=== PATIENT | male | born 1975 | race African-American/Black ===

== ENCOUNTER 2018-09-22 07:15 | Day surgery (SDC) | payer OTHER ==
[~2018-09-22] VITALS: Ht 175.3 cm; Wt 66.1 kg
[2018-09-22] VITALS (15 sets, daily range): BP systolic 106–135; BP diastolic 67–89; PULSE 54–78; RESP 14–25; Ht 175.3 cm; Wt 66.1 kg
[2018-09-22] MEDS ORDERED: BUPIVACAINE 0.5%/EPI (SDV) 30 ML INJ ONE (07:46)
[2018-09-22] MEDS ORDERED: METOCLOPRAMIDE 10 MG INJ ONE (08:32)
[2018-09-22] MEDS ORDERED: SUCCINYLCHOLINE CHLORIDE 100 MG/5 ML SYG IV ONE (08:32)
[2018-09-22] MEDS ORDERED: MIDAZOLAM 1 MG/ML 2 ML INJ ONE (08:32)
[2018-09-22] MEDS ORDERED: FENTAnyl 50 MCG/ML VIAL ONE (08:32)
[2018-09-22] MEDS ORDERED: NEOSTIGMINE 3 MG/3 ML SYRINGE ONE (08:32)
[2018-09-22] MEDS ORDERED: ROCURONIUM 50 MG INJ ONE (08:32)
[2018-09-22] MEDS ORDERED: GLYCOPYRROLATE 0.4 MG INJ ONE (08:32)
[2018-09-22] MEDS ORDERED: ONDANSETRON 4 MG INJ ONE (08:32)
[2018-09-22] MEDS ORDERED: PROPOFOL 20 ML ONE (08:32)
[2018-09-22] MEDS ORDERED: CEFAZOLIN 1 GM INJ ONE (08:52)
[2018-09-22] MEDS ORDERED: NEOMYC/POLYMYX/BACIT 30 GM OINT ONE (09:12)
[2018-09-22] MEDS ORDERED: BUPIVACAINE 0.5%/EPI (SDV) 30 ML INJ INJ ONE (09:28)
[2018-09-22] MEDS ORDERED: ONDANSETRON 4 MG INJ IV PRN ×2 (09:30→10:00)
[2018-09-22] MEDS ORDERED: morphine (1 MG/ML) 10ML SYRINGE IV PRN (09:30)
[2018-09-22] MEDS ORDERED: METOCLOPRAMIDE 10 MG INJ IV PRN (09:30)
[2018-09-22] MEDS ORDERED: FENTAnyl 50 MCG/ML VIAL IV PRN (09:30)
[2018-09-22] MEDS ORDERED: LABETALOL HCL 20MG INJ IV PRN (09:30)
[2018-09-22] MEDS ORDERED: HYDROmorphONE 1 MG/5 ML IV SYRINGE IV PRN (09:30)
[2018-09-22] MEDS ORDERED: KETOROLAC 15 MG INJ IV PRN (09:30)
[2018-09-22] MEDS ORDERED: NEOMYC/POLYMYX/BACIT 30 GM OINT TOP ONE (09:32)
--- NOTE | 2018-09-22 09:45 | OPR ---
Date/Time of Note Date/Time of Note DATE: 09/22/18 TIME: 09:39 Operative Report Procedure Date: Sep 22, 2018 Preoperative Diagnosis 1. Scalp mass 2. Left neck mass Postoperative Diagnosis 1. Scalp mass 2. Left neck mass Operation/Procedure Performed 1. Excision of scalp mass 2. Excision of left neck mass Surgeon see signature line [employer] Line Examiner None Anesthesia Type: general Anesthesiologist: Radha Chase Estimated Blood Loss: minimal Transfusion none Specimen 1. Scalp mass 2. Left neck mass Grafts/Implants none Complications none Pt Condition Post Procedure: stable Disposition: PACU Indications Patient is a 43-year-old -[place] male who presented to the office complaining of soft tissue masses of the right posterior scalp and left neck area. He reports these have been present for several years, however, have recently been growing and causing increasing discomfort. The patient was scheduled for elective excision for symptom relief and definitive pathological diagnosis. All risks and benefits of the procedure including, but not limited to: Wound infection, excessive bleeding, postoperative seroma/hematoma formation, excessive scarring and healing problems of the incision, mass recurrence etc. were all explained to the patient in full detail. The patient fully understood and wished to proceed with the procedure. Informed consent was obtained. Procedure Description The patient was brought to the operating room and placed supine on the operating table. Bilateral sequential compression devices were placed on both lower extremities. A dose of broad-spectrum perioperative intravenous antibiotics was given. The right posterior scalp mass in the left neck mass were preoperatively marked and confirmed with the patient in the holding area. After the induction of smooth general anesthesia the patient's scalp was prepped and draped in standard surgical fashion. After performance of the surgical timeout 0.5% Marcaine with epinephrine was injected over the area of the mass. Incision was then made over the mass using a 15 blade scalpel. The incision was carried down through the skin and dermis into the subcutaneous tissues. A mass was encountered from the deep dermis extending into the subcutaneous tissues. It appeared consistent with a pilar cyst. It was dissected free of surrounding tissues using a combination of blunt and sharp dissection. Once the cyst sac was dissected free in its entirety, it was transected at its base and passed off the field as specimen. Hemostasis was then inspected for and noted to be adequate. The wound was then irrigated with warm saline and the irrigant retur manda clear. Further local anesthesia was applied around the skin of the incision site. The skin was then reapproximated using interrupted 3-0 nylon sutures. Bacitracin ointment was applied. Attention was then turned towards the left neck mass. The left neck was prepped and draped in standard surgical fashion. All clean instruments were used. 0.5% Marcaine was then injected over the area of the mass. Incision was made over the mass using a 15 blade scalpel. The incision was carried down through the s kin and dermis into the subcutaneous tissues. A lipomatous neoplasm was identified in the subcutaneous tissues. It was dissected free of surrounding tissues, transected at its base and passed off the field as specimen. Hemostasis was then inspected for and noted to be total. The wound cavity was then irrigated with warm irrigation which returned clear. Further local anesthesia was applied around the skin and the incision site. The skin was then reapproximated using a running 4-0 Monocryl suture in a subcuticular fashion. Incision was then cleaned and Dermabond was applied. The patient was awoken from anesthesia and transferred to the recovery room in stable condition. All counts were correct at the end of the case x2. MILTON SHARMA MD Sep 22, 2018 09:45
[2018-09-22] MEDS ORDERED: IBUPROFEN 600 MG TAB PO PRN (10:00)
--- NOTE | 2018-09-22 10:19 | PREAC ---
Date/Time of Note Date/Time of Note DATE: 09/22/18 TIME: 10:14 Anesthesia Eval and Record Evaluation Time Pre-Procedure Interview DATE: 09/22/18 TIME: 10:14 Age 43 Sex male NPO: 8 hrs Preoperative diagnosis head mass right occipital neck mass left Planned procedure excision of above Past Medical History Past Medical History: None Surgery & Anesthesia Issues Hx of difficult intubation Meds Anticoagulation: No Beta Martell within 24 hr: No Reason Beta Martell not given: Other (r) No Active Prescriptions or Reported Meds Current Medications Morphine Sulfate (morphine (REC)) 4 mg PACU ORDER PRN IV MOD PAIN 4-6; Start 09/22/18 at 09:30; Stop 09/22/18 at 14:00 Hydromorphone HCl (Dilaudid) 0.4 mg PACU PRN IV MOD PAIN 4-6; Start 09/22/18 at 09:30; Stop 09/22/18 at 14:00 Fentanyl (Sublimaze) 25 mcg PACU ORDER PRN IV MILD PAIN 1-3; Start 09/22/18 at 09:30; Stop 09/22/18 at 14:00 Ketorolac Tromethamine (Toradol) 15 mg PACU ORDER PRN IV FOR PAIN AFTER IV NARCOTIC MED; Start 09/22/18 at 09:30; Stop 09/22/18 at 14:00 Ondansetron HCl (Zofran Inj) 4 mg PACU ORDER PRN IV NAUSEA/VOMITING; Start 09/22/18 at 09:30; Stop 09/22/18 at 14:00 Metoclopramide HCl (Reglan) 10 mg PACU ORDER PRN IV NAUSEA/VOMITING; Start 09/22/18 at 09:30; Stop 09/22/18 at 14:00 Labetalol HCl (Labetalol) 5 mg PACU ORDER PRN IV HIGH BLOOD PRESSURE; Start 09/22/18 at 09:30; Stop 09/22/18 at 14:00 Ibuprofen (Motrin) 600 mg Q6H PRN PO .PAIN; Start 09/22/18 at 10:00 Ondansetron HCl (Zofran Inj) 4 mg Q6H PRN IV NAUSEA/VOMITING; Start 09/22/18 at 10:00 Meds reviewed: Yes Allergies Coded Allergies: No Known Allergy (Unverified , 09/22/18) Allergies Reviewed: Yes Labs/Studies Labs Reviewed: Reviewed by anesthesiologist Result Diagram: 09/22/18 0745 09/22/18 0745 Laboratory Tests 09/22/18 07:45 test: N/A Pre-procedure Exam Last vitals Vital Signs Date Temp Pulse Resp B/P (MAP) Pulse Ox O2 O2 Flow FiO2 Time Delivery Rate 09/22/18 56 20 121/77 98 Room Air 10:09 (92) 09/22/18 98.1 10:03 Airway: Adequate mouth opening, Adequate thyromental dist Mallampati: Mallampati I Teeth: Normal Lung: Normal Heart: Normal ASA Physical Status ASA physical status: 1 Emergency: None Planned Anesthetic General/MAC: ETT Pre-operative Attestations Prior to commencing anesthesia and surgery, the patient was re-evaluated, there was verification of: *The patient's identity *The results of appropriate recent lab work and preoperative vital signs *The above evaluation not changing prior to induction *Anesthetic plan, risk benefits, alternative and complications discussed with patient/family; questions answered; patient/family understands, accepts and wishes to proceed. Radha Chase Sep 22, 2018 10:19
--- NOTE | 2018-09-22 10:20 | PAC ---
Date/Time of Note Date/Time of Note DATE: 09/22/18 TIME: 10:19 Post-Anesthesia Notes Post-Anesthesia Note Last documented vital signs Vital Signs Date Temp Pulse Resp B/P (MAP) Pulse Ox O2 O2 Flow FiO2 Time Delivery Rate 09/22/18 56 20 121/77 98 Room Air 10:09 (92) 09/22/18 98.1 10:03 Activity: WNL Respiratory function: WNL Cardiovascular function: WNL Mental status: Baseline Pain reasonably controlled: Yes Hydration appropriate: Yes Nausea/Vomiting absent: Yes Radha Chase Sep 22, 2018 10:20
== END 2018-09-22 12:09 | disposition home or self-care (01) ==
LOC: SDS 07:15
PROVIDERS: ATTEND Surgery
DX: L72.0 Epidermal cyst (principal)
CPT/HCPCS: 11426; 80048; 85025; 85610; 85730; 88307; J0690; J2250; J2405; J2710; J2765; J3010; Z7512; Z7610